=== PATIENT | male | born 1970 | race Caucasian/White ===

== ENCOUNTER 2017-01-22 10:26 | Emergency (ER) | payer SELFPAY ==
[~2017-01-22] VITALS: Ht 177.8 cm; Wt 122.5 kg
--- NOTE | 2017-01-22 11:20 | NUR ---
PT CAME IN FOR LEFT SIDED CP NON RADIATING X 1 WEEK. NAD NOTED. VSS. SEEN BY MD FOR EVAL. SAFETY AND COMFORT MEASURES PROVIDED. WILL MONITOR.
[2017-01-22] MEDS ORDERED: ASPIRIN 81 MG TAB.CHEW ONE (11:24)
[2017-01-22] MEDS ORDERED: ASPIRIN 81 MG TAB.CHEW PO ONE (11:30)
[2017-01-22 11:32] LABS: CALCIUM, SERUM 8.9 mg/dL (8.5-10.1); CARBON DIOXIDE 26 mmol/L (21-32); CHLORIDE 104 mmol/L (98-107); CREATININE 0.9 mg/dL (0.6-1.3); GLUCOSE 148 mg/dL (74-106); POTASSIUM 3.9 mmol/L (3.5-5.1); SODIUM SERUM 138 mmol/L (136-145); UREA NITROGEN, BLOOD 10 mg/dL (7-18)
[2017-01-22 11:34] LABS: BASOPHILS % (AUTO) 0.6 % (0.0-2.0); EOSINOPHILS # (AUTO) 0.1 /CMM (0.0-0.7); EOSINOPHILS % (AUTO) 1.3 % (0.0-6.0); HEMATOCRIT 47 % (39-51); HEMOGLOBIN 16.1 g/dL (13.5-17.5); LYMPHOCYTES # (AUTO) 2.1 /CMM (0.8-4.8); LYMPHOCYTES % (AUTO) 27.1 % (20.0-44.0); MEAN CORPUSCULAR HEMOGLOBIN 29 PG (26.0-33.0); MEAN CORPUSCULAR HGB CONC 35 g/dl (31.0-36.0); MEAN CORPUSCULAR VOLUME 84 fL (80-96); MONOCYTES # (AUTO) 0.5 /CMM (0.1-1.30); MONOCYTES % (AUTO) 6.5 % (2.0-12.0); NEUTROPHILS # (AUTO) 4.9 /CMM (1.8-8.9); NEUTROPHILS % (AUTO) 64.5 % (43.0-81.0); PLATELET COUNT (AUTO) 201 /CMM (150-450); RDW COEFFICIENT OF VARIATION 12.9 (11.5-15.0); RED BLOOD CELL COUNT(AUTO) 5.58 MIL/uL (4.5-6.0); WHITE BLOOD COUNT (AUTO) 7.6 K/uL (4.3-11.0)
--- NOTE | 2017-01-22 11:35 | NUR ---
PT MEDICATED ORDERED.
[2017-01-22 11:38] LABS: ALANINE AMINOTRANSFERASE 31 U/L (12-78); ALBUMIN 3.6 g/dL (3.4-5.0); ALKALINE PHOSPHATASE 73 U/L (46-116); ASPARTATE AMINOTRANSFERASE 12 U/L (15-37); BILIRUBIN,DIRECT 0.1 mg/dL (0.0-0.2); BILIRUBIN,TOTAL 0.4 mg/dL (0.2-1.0); TOTAL PROTEIN, SERUM 7.1 g/dL (6.4-8.2)
[2017-01-22 11:40] LABS: TROPONIN I < 0.017 ng/mL (0.00-0.056)
[2017-01-22 11:41] LABS: INR 0.93 (0.87-1.13); PROTHROMBIN TIME 9.7 SECS (9.5-12.7)
--- NOTE | 2017-01-22 12:56 | NUR ---
PAGED DR ARANDA
--- NOTE | 2017-01-22 12:58 | NUR ---
PATIENT ASSIGNED TO TELE 306-1, DX CHEST PAIN
[2017-01-22 13:17] VITALS: BP 152/96
--- NOTE | 2017-01-22 13:18 | NUR ---
PATIENT REQUESTING TO GO HOME. PER DR. SEGAL, PATIENT MAY LEAVE AMA ONLY. PATIENT PROVIDED EDUCATION ON RISKS AND BENEFITS OF LEAVING THE HOSPITAL AT THIS TIME. PATIENT VERBALIZES UNDERSTANDING, STATING HE HAS HIS OWN [employer] HE WILL GO SEE. PATIENT SIGNED AMA FORM, IV REMOVED. LEFT AMA WITH VIA PRIVATE CAR.
== END 2017-01-22 13:18 | disposition left against medical advice (07) ==
LOC: ER 10:29
DX: R07.9 Chest pain, unspecified (principal); I10 Essential (primary) hypertension; F10.10 Alcohol abuse, uncomplicated; F17.200 Nicotine dependence, unspecified, uncomplicated
CPT/HCPCS: 36415; 71010; 80048; 80076; 84484; 85025; 85730; 93005; 99285; A4606; Z7610